=== PATIENT | female | born 1995 | race Hispanic/Latino ===

== ENCOUNTER 2021-04-29 18:55 | Emergency (ER) | payer OTHER, SELFPAY ==
--- OUTSIDE RECORDS SUMMARY | 2021-04-29 19:01 | XMS REPORT | Continuity of Care Document ---
:1995 Author Organization [facility] t Address [address] [place] [address] Care Team Providers Name Role Phone Maru Tong Attending Clinician [phone] Lab, Fam Pob I Attending Clinician Unavailable Gisel Holly Attending Clinician Problems This patient has no known problems. Allergies, Adverse Reactions, Alerts This patient has no known allergies or adverse reactions. Medications This patient has no known medications. Procedures This patient has no known procedures. Encounters Start End Encounter Admission Attending Care Care Encounter Source Date/Time Date/Time Type Type Clinicians Facility Department ID 2020-12-23 2020-12-23 Routine Paxton [facility] [id number] 15:06:51 15:39:49 Maru Ross TOOL BUILDER 350..13.10 Visit [facility] [id number] MATERNAL [id number] & CHILD [address] [place] [address] 2020-12-11 2020-12-11 Laboratory Lab, Adc [facility] [id number] 11:44:25 12:04:25 Only Fam Pob I Health [id number] [place] [id number] Professio [id number] nal [address] 2020-11-30 2020-11-30 Telephone Tobias [facility] [id number] 00:00:00 00:00:00 Elina Batres TOOL BUILDER [id number] [facility] [id number] MATERNAL [id number] & CHILD [address] [place] [address] - CHADDS FORD Results This patient has no known results.
--- NOTE | 2021-04-29 20:27 | RAD REPORT ---
EXAM DESCRIPTION: CT - Head Brain Wo Cont - 04/29/2021 8:21 pm CLINICAL HISTORY: HEADACHE COMPARISON: No comparisons TECHNIQUE: Axial 5 mm thick images of the head were obtained without IV contrast. All CT scans are performed using dose optimization technique as appropriate and may include automated exposure control or mA/KV adjustment according to patient size. FINDINGS: No intracranial hemorrhage, mass, edema or shift of mid-line structures. No acute infarcti on changes seen. No abnormal extra-axial fluid collections. Ventricles are normal. Mastoid air cells and visualized portions of the paranasal sinuses are clear. No acute bony findings. IMPRESSION: Negative non-contrast CT head examination.
[2021-04-29] MEDS ORDERED: dexAMETHasone 10 MG/ML VIAL ONE (20:57)
[2021-04-29] MEDS ORDERED: ONDANSETRON 4 MG/2 ML VIAL ONE (20:58)
[2021-04-29] MEDS ORDERED: MEPERIDINE HCL 25 MG/ML SYR ONE (20:58)
[2021-04-29] MEDS ORDERED: NA CHLORIDE 0.9% 1,000 ML ONE (20:58)
[2021-04-29 21:09] LABS: Urine Blood Negative (Negative); Urine Glucose Negative (Negative); Urine Protein Negative (Negative); Urine Specific Gravity 1.025 (1.005-1.030)
[2021-04-29 21:11] LABS: Urine Specific Gravity/Preg 1.025 (1.005-1.030)
[2021-04-29 21:14] LABS: Absolute Lymphocytes (CBC) 1.9 K/uL (0.7-4.9); Basophils % 0.2 % (0-1.3); Hematocrit 40.1 % (36.0-45.0); Lymphocytes % 14.6 % (15.3-44.8); MPV 8.2 fL (7.6-11.3); RBC Red Blood Cell Count 5.13 M/uL (3.86-4.86)
[2021-04-29 21:25] LABS: Urine Bacteria 20-50 /HPF (<20); Urine Mucus 2+ /HPF (NONE SEEN); Urine RBC <5 /HPF (NONE SEEN)
[2021-04-29 21:28] LABS: BUN Blood Urea Nitrogen 9 mg/dL (7-18); Bicarbonate 26 mmol/L (21-32); Glucose Level 93 mg/dL (74-106); Potassium 3.7 mmol/L (3.5-5.1); Sodium Level 140 mmol/L (136-145)
--- NOTE | 2021-04-29 21:34 | EDPHYS ---
Physician Documentation [facility] Name: Carlyn Vanegas Age: 25 yrs Sex: Female : 1995 Arrival Date: 04/29/2021 Time: 18:58 Bed 8 Private MD: ED Physician Eduard Osborne HPI: 04/29 20:14 This 25 yrs old Female presents to ER via Ambulatory with complaints of rn Headache. 20:14 The patient complains of pain to the top of head and forehead. The patient describes rn the headache as aching. Onset: The symptoms/episode began/occurred today. Associated signs and symptoms: Pertinent positives: nausea, vomiting, Pertinent negatives: altered mental status, fever, neck stiffness, paresthesias, rash, vision loss, weakness. Severity of symptoms: At its worst the pain was moderate, in the emergency department the pain is unchanged. Headache History: The patient has had previous headaches and this one is similar to previous episodes. The symptoms are alleviated by nothing. the symptoms are aggravated by nothing. The patient has experienced similar episodes in the past. The patient has not recently seen a physician. Reports headache that began earlier today, no trauma, has happened numerous times before since teenage years, no diagnosis yet, no fever/neck stiffness. Reports spots in both eyes. Usually goes away with OTC meds and coke, didn't today. No focal neurological complaint. NO vision loss. Does not feel sick. Reports vomiting and unable to keep pills down so came in.. 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 - Social history:: Smoking status: Patient denies any tobacco usage or history of. - Family history:: not pertinent. - Hospitalizations: : No recent hospitalization is reported. ROS: 20:14 Constitutional: Negative for fever and weight loss Eyes: Negative for injury, pain, rn redness, and discharge, ENT: Negative for injury, pain, and discharge, Neck: Negative for injury, pain, and swelling, Cardiovascular: Negative for chest pain, palpitations, and edema, Respiratory: Negative for shortness of breath, cough, wheezing, and pleuritic chest pain, Abdomen/GI: Negative for abdominal pain, diarrhea, and constipation, Back: Negative for injury and pain, : Negative for injury, bleeding, discharge, and swelling, MS/Extremity: Negative for injury and deformity, Skin: Negative for injury, rash, and discoloration, Neuro: Negative for weakness, numbness, tingling, and seizure. Exam: 20:14 Constitutional: This is a well developed, well nourished patient who is awake, alert, rn and in no acute distress. Ambulatory to room without difficulty, normal gait. Head/Face: Normocephalic, atraumatic. Eyes: Pupils equal round and reactive to light, extra-ocular motions intact. Lids and lashes normal. Conjunctiva and sclera are non-icteric and not injected. Cornea within normal limits. Periorbital areas with no swelling, redness, or edema. ENT: No stridor Neck: Supple, full range of motion without nuchal rigidity, or vertebral point tenderness. No Meningismus. Cardiovascular: Regular rate and rhythm. No pulse deficits. Respiratory: No increased work of breathing, no retractions or nasal flaring. Skin: Warm, dry with normal turgor. Normal color with no rashes, no lesions, and no evidence of cellulitis. MS/ Extremity: Pulses equal, no cyanosis. Neurovascular intact. Full, normal range of motion. Equal circumference. Neuro: Awake and alert, GCS 15, oriented to person, place, time, and situation. Cranial nerves II-XII grossly intact. Motor strength 5/5 in all extremities. Sensory grossly intact. Cerebellar exam normal. Normal gait. 21:24 ECG was reviewed by the Attending Physician. rn Vital Signs: 19:09 BP 139 / 96; Pulse 87; Resp 18; Temp 97.3; Pulse Ox 100% on R/A; Weight 62.6 kg; Height ph 5 ft. 3 in. (160.02 cm); 21:50 BP 123 / 86; Pulse 80; Resp 18; Pulse Ox 99% on R/A; ea 19:09 Body Mass Index 24.45 (62.60 kg, 160.02 cm) ph Sabrina Coma Score: 20:14 Eye Response: spontaneous(4). Verbal Response: oriented(5). Motor Response: obeys rn commands(6). Total: 15. MDM: 20:02 Patient medically screened. rn 20:14 Differential diagnosis: cluster headache, hypertensive headache, intracerebral rn hemorrhage, migraine, neoplasm, sinusitis, tension headache, trigeminal neuralgia, vasomotor headache. 21:18 ED course: COVID vaccinated. rn 21:31 Data reviewed: vital signs, nurses notes, lab test result(s), EKG, radiologic studies, rn CT scan, and as a result, I will discharge patient. Counseling: I had a detailed discussion with the patient and/or guardian regarding: the historical points, exam findings, and any diagnostic results supporting the discharge/admit diagnosis, lab results, radiology results, the need for outpatient follow up, to return to the emergency department if symptoms worsen or persist or if there are any questions or concerns that arise at home. Response to treatment: the patient's symptoms have markedly improved after treatment, the patient's condition has returned to base line, the patient is now symptom free, Pain completely resolved, and as a result, I will discharge patient. Special discussion: I discussed with the patient/guardian in detail that at this point there is no indication for admission to the hospital. It is understood, however, that if the symptoms persist or worsen the patient needs to return immediately for re-evaluation. 04/29 20:14 Order name: CBC with Diff 04/29 20:14 Order name: Basic Metabolic Panel 04/29 20:14 Order name: Urine Microscopic Only 04/29 20:14 Order name: Banks Screen Profile; Complete Time: 21:29 04/29 20:14 Order name: CBC with Automated Diff; Complete Time: 21:18 [facility] 04/29 20:14 Order name: Basic Metabolic Panel; Complete Time: 21:29 [facility] 04/29 20:14 Order name: CT Head Brain wo Cont; Complete Time: 20:30 04/29 20:15 Order name: Urine Microscopic Only; Complete Time: 21:29 [facility] 04/29 21:09 Order name: Urine Dipstick-Ancillary; Complete Time: 21:18 [facility] 04/29 21:10 Order name: Urine --Ancillary (enter results); Complete Time: 21:18 mw2 04/29 21:27 Order name: Urine Culture [facility] 04/29 20:14 Order name: IV Start; Complete Time: 21:13 04/29 20:14 Order name: Urine Dipstick-Ancillary (obtain specimen); Complete Time: 21:13 rn 04/29 20:14 Order name: Urine Test (obtain specimen); Complete Time: 21:13 rn 04/29 20:14 Order name: EKG; Complete Time: 20:15 rn 04/29 20:14 Order name: EKG - Nurse/Tech; Complete Time: 21:40 rn EC:24 Rate is 64 beats/min. Rhythm is regular. QRS [place] is Normal. MI interval is normal. QRS rn interval is normal. QT interval is normal. No Q waves. T waves are Inverted in leads V1, V2. No ST changes noted. Clinical impression: NSR w/ Non-specific ST/T Changes. Interpreted by me. Administered Medications: 21:05 Drug: Zofran (Ondansetron) 4 mg Route: IVP; Site: right antecubital; ea 21:49 Follow up: Response: No adverse reaction ea 21:12 Drug: Demerol (meperidine) 25 mg Route: IVP; Site: right antecubital; ea 21:49 Follow up: Response: No adverse reaction ea 21:12 Drug: Decadron - Dexamethasone 10 mg Route: IVP; Site: right antecubital; ea 21:49 Follow up: Response: No adverse reaction ea 21:14 Drug: NS 0.9% 1000 ml Route: IV; Rate: 1000 ml; Site: right antecubital; ea 21:49 Follow up: Response: No adverse reaction; IV Status: Completed infusion; IV Intake: ea 1000ml 21:49 Drug: Cipro (ciprofloxacin) 500 mg Route: PO; ea 21:49 Follow up: Response: Medication administered at discharge. ea Disposition Summary: 04/29/21 21:33 Discharge Ordered Location: Home rn Problem: an ongoing problem rn Symptoms: have improved rn Condition: Stable rn Diagnosis - Migraine without aura, not intractable rn - UTI/ Urinary tract infection, site not specified rn Followup: rn - With: Kye Lizarraga MD - When: As needed - Reason: Recheck today's complaints, Re-evaluation by your physician Discharge Instructions: - Discharge Summary Sheet rn - Migraine Headache rn - Urinary Tract Infection, Adult rn Forms: - Medication Reconciliation Form rn - Thank You Letter rn - Antibiotic foundry patternmaker - Prescription Opioid Use rn Prescriptions: - Cipro 500 mg Oral Tablet - take 1 tablet by ORAL route every 12 hours for 10 days; 20 tablet; Refills: 0, rn Product Selection Permitted - ondansetron 4 mg Oral tablet,disintegrating - take 1 tablet by ORAL route every 8 hours As needed; 15 tablet; Refills: 0, rn Product Selection Permitted Signatures: Dispatcher [employer] Eduard Calvo MD MD rn Hall, Patricia, RN RN ph Antunez, Elena, RN RN ea
--- NOTE | 2021-04-29 21:34 | ER ---
Nurse's Notes [facility] Name: Carlyn Vanegas Age: 25 yrs Sex: Female : 1995 Arrival Date: 04/29/2021 Time: 18:58 Bed 8 Private MD: Diagnosis: Migraine without aura, not intractable;UTI/ Urinary tract infection, site not specified Presentation: 04/29 19:09 Chief complaint: Patient states: Headache, dizziness, N/V x 1 day, denies abdominal ph pain or diarrhea. Coronavirus screen: Client denies travel out of the [place] in the last 14 days. Ebola Screen: No symptoms or risks identified at this time. Initial Sepsis Screen: Does the patient meet any 2 criteria? No. Patient's initial sepsis screen is negative. Does the patient have a suspected source of infection? No. Patient's initial sepsis screen is negative. Risk Assessment: Do you want to hurt yourself or someone else? Patient reports no desire to harm self or others. Onset of symptoms was April 29, 2021. 19:09 Method Of Arrival: Ambulatory 19:09 Acuity: MADI 3 ph BINDER CASER: 19:10 LMP 04/13/2021 ph Historical: - Allergies: 19:10 No Known Allergies; ph - PMHx: 19:10 None; ph - Immunization history:: Client reports receiving the 2nd dose of the Covid vaccine. - Social history:: Smoking status: Patient denies any tobacco usage or history of. - Family history:: not pertinent. - Hospitalizations: : No recent hospitalization is reported. Screenin:11 Abuse screen: Denies threats or abuse. Nutritional screening: No deficits noted. ea Tuberculosis screening: No symptoms or risk factors identified. Fall Risk IV access (20 points). Assessment: 21:12 General: Appears in no apparent distress. Behavior is calm, cooperative, appropriate ea for age. Neuro: Level of Consciousness is awake, alert, obeys commands, Oriented to person, place, time. Respiratory: Airway is patent Respiratory effort is even, unlabored, Respiratory pattern is regular, symmetrical. GI: Abdomen is non-distended. Derm: Skin is pink, warm \T\ dry. 21:54 Reassessment: Patient and/or family updated on plan of care and expected duration. Pain ea level reassessed. Patient is alert, oriented x 3, equal unlabored respirations, skin warm/dry/pink. Discharge instruction given to patient verbalized the understanding of instruction Pt left ED ambulatory tolerating well. Pt accompanied by significant other. Vital Signs: 19:09 BP 139 / 96; Pulse 87; Resp 18; Temp 97.3; Pulse Ox 100% on R/A; Weight 62.6 kg; Height ph 5 ft. 3 in. (160.02 cm); 21:50 BP 123 / 86; Pulse 80; Resp 18; Pulse Ox 99% on R/A; ea 19:09 Body Mass Index 24.45 (62.60 kg, 160.02 cm) ph [place] Coma Score: 20:14 Eye Response: spontaneous(4). Verbal Response: oriented(5). Motor Response: obeys rn commands(6). Total: 15. ED Course: 18:58 Patient arrived in ED. as 19:10 Triage completed. ph 19:10 Arm band placed on Patient placed in waiting room, Patient notified of wait time. ph 20:02 Eduard Osborne MD is Attending Physician. rn 20:24 CT Head Brain wo Cont In Process Unspecified. EDMS 20:28 Alicia Pugh, RN is Primary Nurse. ea 21:11 Patient has correct armband on for positive identification. Bed in low position. Call ea light in reach. Pulse ox on. NIBP on. 21:11 Inserted saline lock: 20 gauge in right antecubital area, using aseptic technique. ea Blood collected. 21:33 Kye Lizarraga MD is Referral Physician. rn 21:49 No provider procedures requiring assistance completed. IV discontinued, intact, ea bleeding controlled, No redness/swelling at site. Pressure dressing applied. Administered Medications: 21:05 Drug: Zofran (Ondansetron) 4 mg Route: IVP; Site: right antecubital; ea 21:49 Follow up: Response: No adverse reaction ea 21:12 Drug: Demerol (meperidine) 25 mg Route: IVP; Site: right antecubital; ea 21:49 Follow up: Response: No adverse reaction ea 21:12 Drug: Decadron - Dexamethasone 10 mg Route: IVP; Site: right antecubital; ea 21:49 Follow up: Response: No adverse reaction ea 21:14 Drug: NS 0.9% 1000 ml Route: IV; Rate: 1000 ml; Site: right antecubital; ea 21:49 Follow up: Response: No adverse reaction; IV Status: Completed infusion; IV Intake: ea 1000ml 21:49 Drug: Cipro (ciprofloxacin) 500 mg Route: PO; ea 21:49 Follow up: Response: Medication administered at discharge. ea Intake: 21:49 IV: 1000ml; Total: 1000ml. ea Outcome: 21:33 Discharge ordered by . rn 21:50 Discharged to home ambulatory, with family. ea 21:50 Condition: stable 21:50 Discharge instructions given to patient, Instructed on discharge instructions, follow up and referral plans. no driving heavy equipment, Demonstrated understanding of instructions, follow-up care, medications, Prescriptions given X 2. 21:55 Patient left the ED. ea Signatures: Dispatcher [employer] Leesa Dickson Roman, MD MD rn Hall, Patricia, RN RN ph Antunez, Elena, RN RN ea
[2021-04-29] MEDS ORDERED: CIPROFLOXACIN HCL 500 MG TAB ONE (22:05)
[2021-04-29 22:26] VITALS: TEMP 97.3
[2021-04-29 22:28] VITALS: BP 123/86; O2SAT 99
--- NOTE | 2021-04-30 06:18 | EKG ---
Test Date: 2021-04-29 Test Time: 21:23:08 Script Editor: SULY MEASUREMENT RESULTS: Intervals: Rate: 64 MD: 120 QRSD: 88 QT: 430 QTc: 443 [place]: P: 36 MD: 120 QRS: 76 T: 41 INTERPRETIVE STATEMENTS: Normal sinus rhythm Nonspecific T wave abnormality Abnormal ECG No previous ECG available for comparison Electronically Signed On 04-30-21 06:17:39 CDT by Erick Henriquez
== END 2021-04-29 21:55 | disposition home or self-care (01) ==
LOC: ER 18:55
DX: G43.009 Migraine without aura, not intractable, without status migrainosus (principal); N39.0 Urinary tract infection, site not specified
CPT/HCPCS: 36415; 70450; 80048; 81003; 81015; 81025; 85025; 86308; 87077; 87086; 87088; 87186; 93005; 96361; 96374; 96375; 99284; J1100; J2175; J2405; J7030

== ENCOUNTER 2023-07-17 11:36 | Emergency (ER) | payer SELFPAY ==
--- OUTSIDE RECORDS SUMMARY | 2023-07-17 11:39 | XMS REPORT | Continuity of Care Document ---
:1995 Author Organization [facility] t Address [address] [address] [place] [address] Care Team Providers Name Role Phone MARU SERRANO Attending Clinician Unavailable Paxton Maru KOHLI Attending Clinician [phone] FREDERIC SANTANA Attending Clinician Unavailable Lab, Adc Fam Pob I Attending Clinician Unavailable Elina Holly Attending Clinician ELINA COLLADO Attending Clinician Unavailable MACK MOODY Attending Clinician Unavailable MACK MOODY Admitting Clinician Unavailable Payers Payer Name Policy Type Policy Number Effective Date Expiration Date Nakita sprague [place] DU[place] [id number] 2020 HEALTH 00:00:00 MEDICAID PENDING PENDING 2020 00:00:00 Problems This patient has no known problems. Allergies, Adverse Reactions, Alerts Allergy Allergy Status Severity Reaction(s) Onset Inactive Treating Comm ents Source Name Type Date Date Clinician NO KNOWN Drug Active Univers ALLERGIE Class ity of S [facility] Medications This patient has no known medications. Procedures This patient has no known procedures. Encounters Start End Encounter Admission Attending Care Care Encounter Source Date/Time Date/Time Type Type Clinicians Facility Department ID 2021-01-13 2021-01-13 Outpatient R PAXTON [facility] [id number] Univers 10:30:00 10:30:00 MARU seaman o juvencio [facility] 2020-12-23 2020-12-23 Outpatient R PAXTON, [facility] [id number] Univers 16:00:00 16:00:00 MARU seaman o juvencio [facility] 2020-12-23 2020-12-23 Routine Paxton, [facility] [id number] 15:06:51 15:39:49 Maru C MIXER ATTENDANT [id number] Visit REGIONAL [id number] MATERNAL [id number] & CHILD [address] [facility] 2020-12-17 2020-12-17 Outpatient R PAXTON, [facility] [id number] Univers 13:00:00 13:00:00 MARU martin [facility] 2020-12-14 2020-12-14 Outpatient R PAXTON, [facility] [id number] Univers 14:30:00 14:30:00 MARU martin [facility] 2020-12-11 2020-12-11 Outpatient R MAX [facility] [id number] Univers 13:00:00 13:00:00 FREDERIC urszula [facility] 2020-12-11 2020-12-11 Laboratory Lab, [facility] [id number] 11:44:25 12:04:25 Only Fam Pob I Health [id number] [place] [id number] Professio [id number] nal [address] 2020-11-30 2020-11-30 [facility] [id number] 00:00:00 00:00:00 Elina Batres MIXER ATTENDANT [id number] REGIONAL [id number] MATERNAL [id number] & CHILD [address] [facility] 2020-11-27 2020-11-27 Outpatient Gisel COLLADO [facility] [id number] Univers 13:30:00 13:30:00 ROSKRISTYNNDA ity o [facility] 2020-11-20 2020-11-20 Outpatient P FRANSISCO [facility] ZAIRA [id number] Univers 06:01:00 06:01:00 MACK seaman [facility] 2020-11-17 2020-11-17 Outpatient R LOU [facility] [id number] Univers 11:00:00 11:00:00 OLIVERNDA ity o f [facility] 2020-11-11 2020-11-11 Outpatient R LOU [facility] [id number] Univers 13:45:00 13:45:00 ROSKRISTYNNDA ity o f [facility] 2020-11-10 2020-11-10 Outpatient R LOU [facility] [id number] Univers 13:45:00 13:45:00 ROSKRISTYNNDA ity o f [facility] 2020-11-04 2020-11-04 Outpatient R LOU [facility] [id number] Univers 12:45:00 12:45:00 OLIVERNDA nedy o f [facility] 2020-10-20 2020-10-20 Outpatient R LOU [facility] [id number] Univers 11:00:00 11:00:00 OLIVERNDA ity o f [facility] 2020-10-05 2020-10-05 Outpatient R LOU [facility] [id number] Univers 11:00:00 11:00:00 OLIVERNDA ity o f [facility] 2020-10-01 2020-10-01 Outpatient P [facility] [id number] Univers 08:00:00 08:00:00 itsaida [facility] 2020-09-21 2020-09-21 Outpatient R LOU [facility] [id number] Univers 08:00:00 08:00:00 ROSKRISTYNNDA ity o f [facility] 2020-09-07 2020-09-07 Outpatient R LOU [facility] [id number] Univers 13:15:00 13:15:00 ROSKRISTYNNDA ity o f [facility] 2020-08-24 2020-08-24 Outpatient R LOU [facility] [id number] Univers 12:45:00 12:45:00 ROSKRISTYNNDA ity o f [facility] 2020-08-21 2020-08-21 Outpatient R LOU [facility] [id number] Univers 09:30:00 09:30:00 OLIVERNDA ity o f [facility] 2020-07-24 2020-07-24 Outpatient R LOU [facility] [id number] Univers 08:45:00 08:45:00 OLIVERNDA ity o f [facility] 2020-07-20 2020-07-20 Outpatient R LOU [facility] [id number] Univers 10:45:00 10:45:00 OLIVERNDA ity o f [facility] 2020-07-14 2020-07-14 Outpatient R [facility] [id number] Univers 13:00:00 13:00:00 ity [facility] 2020-06-22 2020-06-22 Outpatient R LOU [facility] [id number] Univers 13:45:00 13:45:00 OLIVERNDA nedy o f [facility] 2020-06-12 2020-06-12 Outpatient R LOU [facility] [id number] Univers 10:15:00 10:15:00 OLIVERNDA nedy o f [facility] 2020-06-12 2020-06-12 Outpatient R [facility] [id number] Univers 08:20:[facility] 2020-06-03 Outpatient R LOU [facility] [id number] Univers 12:45:00 12:45:00 OLIVERNDA ity o f [facility] 2020-05-19 2020-05-19 Outpatient P [facility] [id number] Univers 14:00:00 14:00:00 y [facility] 2020-05-06 2020-05-06 Outpatient R LOU [facility] [id number] Univers 12:45:00 12:45:00 ROSKRISTYNNDA ity o f [facility] 2020-04-08 2020-04-08 Outpatient R LOU [facility] [id number] Univers 12:45:00 12:45:00 ROSKRISTYNNDA ity o f [facility] 2019-07-03 2019-07-03 Outpatient R LOU [facility] [id number] Univers 08:00:00 09:28:39 ELINA henning [facility] Results This patient has no known results.
--- NOTE | 2023-07-17 13:21 | ER ---
Nurse's Notes [facility] Name: Carlyn Vanegas Age: 27 yrs Sex: Female : 1995 Arrival Date: 07/17/2023 Time: 11:36 Bed 10 Private MD: Diagnosis: Acute upper respiratory infection, unspecified Presentation: 07/17 11:50 Chief complaint: Patient states: sore throat, ear pain bilaterally and runny nose since nc1 Monday. Coronavirus screen: Vaccine status: Patient reports receiving the 2nd dose of the covid vaccine. congestion, cough unrelated to allergies, runny nose, sore throat. Ebola Screen: No symptoms or risks identified at this time. Initial Sepsis Screen: Does the patient meet any 2 criteria? No. Patient's initial sepsis screen is negative. Does the patient have a suspected source of infection? No. Patient's initial sepsis screen is negative. Risk Assessment: Do you want to hurt yourself or someone else? Patient reports no desire to harm self or others. Onset of symptoms was July 15, 2023. 11:50 [place] [facility] [place]: [place] [facility] [place] Assessment: 11:51 General: Appears uncomfortable, well groomed, well developed, well nourished, Behavior nc1 is calm, cooperative, appropriate for age. Pain: Complains of pain in right ear and left ear Pain does not radiate. Pain currently is 6 out of 10 on a pain scale. Quality of pain is described as tender, Pain began 2-3 days ago. Is continuous. 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 - Social history:: Smoking status: Reported history of juuling and/or vaping. Screenin:00 [facility] ED Fall Risk Assessment (Adult) History of falling in the last 3 months, db including since admission No falls in past 3 months (0 pts) Confusion or Disorientation No (0 pts) Intoxicated or Sedated No (0 pts) Impaired Gait No (0 pts) Mobility Assist Device Used No (0 pt) Altered Elimination No (0 pt) Score/Fall Risk Level 0 - 2 = Low Risk Oriented to surroundings, Maintained a safe environment. Abuse screen: Denies threats or abuse. Denies injuries from another. Nutritional screening: No deficits noted. Tuberculosis screening: No symptoms or risk factors identified. Assessment: 12:00 Reassessment: Patient appears in no apparent distress at this time. Patient and/or db family updated on plan of care and expected duration. Pain level reassessed. Patient is alert, oriented x 3, equal unlabored respirations, skin warm/dry/pink. General: Appears in no apparent distress. comfortable, Behavior is calm, cooperative. Respiratory: Airway is patent Respiratory effort is even, unlabored, Respiratory pattern is regular, symmetrical. EENT: Reports nasal congestion. 13:37 Reassessment: Patient appears in no apparent distress at this time. Patient and/or db family updated on plan of care and expected duration. Pain level reassessed. Patient is alert, oriented x 3, equal unlabored respirations, skin warm/dry/pink. Neuro: Level of Consciousness is awake, alert, obeys commands, Oriented to person, place, time, situation. Vital Signs: 11:50 BP 120 / 87; Pulse 76; Resp 16; Pulse Ox 100% on R/A; Weight 57.61 kg; Height 5 ft. 3 me1 in. ; 13:37 BP 120 / 86; Pulse 78; Resp 16; Pulse Ox 100% ; db 11:50 Body Mass Index 22.50 (57.61 kg, 160.02 cm) me1 ED Course: 11:38 Patient arrived in ED. rg4 11:41 Micky Slade DO is Attending Physician. ms3 11:51 Triage completed. me1 11:51 Arm band placed on Patient placed in waiting room. me1 13:09 Sharon Schmidt, RN is Primary Nurse. db 13:21 Dakota Carrera DO is Referral Physician. ms3 13:37 Patient has correct armband on for positive identification. Bed in low position. db Provided Education on: DISCHARGE. 13:38 No provider procedures requiring assistance completed. Patient did not have IV access db during this emergency room visit. Administered Medications: No medications were administered Medication: 12:00 VIS not applicable for this client. db Outcome: 13:21 Discharge ordered by . ms3 13:38 Discharged to home ambulatory, db 13:38 Condition: stable 13:38 Discharge instructions given to patient, Instructed on discharge instructions, follow up and referral plans. 13:39 Patient left the ED. db Signatures: Kierra Woods rg4 Micky Slade DO DO ms3 Sharon Schmidt, RN RN db Edna [place], LAURA RN me1 Corrections: (The following items were deleted from the chart) 11 11:51 PMHx: Unable to Obtain; me1 me1 52 11:51 PSHx: None; me1 me1
--- NOTE | 2023-07-17 13:21 | EDPHYS ---
Physician Documentation [facility] Name: Carlyn Vanegas Age: 27 yrs Sex: Female : 1995 Arrival Date: 07/17/2023 Time: 11:36 Bed 10 Private MD: ED Physician Micky Slade HPI: 07/17 11:51 This 27 yrs old Female presents to ER via Unassigned with complaints of Cough, ms3 Ear Pain, Sore Throat, Runny Nose. 11:51 27-year-old female with no past medical history presents for sore throat, ear pain, ms3 congestion that began Monday. Patient notes she also had a fever on Monday. Patient states she needs to be COVID tested prior to her job allowing her to return. Patient denies nausea, vomiting, pain at this time. 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 - Social history:: Smoking status: Reported history of juuling and/or vaping. ROS: 11:51 Constitutional: Negative for fever, and chills. Neck: Negative for injury, pain, and ms3 swelling, Cardiovascular: Negative for chest pain, and palpitations. Respiratory: Negative for shortness of breath, cough, wheezing, and pleuritic chest pain, Abdomen/GI: Negative for abdominal pain, nausea, vomiting, diarrhea, and constipation, MS/Extremity: Negative for injury and deformity, Skin: Negative for injury, rash, and discoloration, Neuro: Negative for headache, weakness, numbness, tingling. 11:51 ENT: Positive for ear pain, nasal discharge, sore throat, Exam: 11:51 Constitutional: This is a well developed, well nourished patient who is awake, alert, ms3 and in no acute distress. Head/Face: Normocephalic, atraumatic. Eyes: Pupils equal round and reactive to light, extra-ocular motions intact. Lids and lashes normal. Conjunctiva and sclera are non-icteric and not injected. Periorbital areas with no swelling, redness, or edema. 11:51 ENT: Nose: nasal drainage, that is minimal, and is seen coming from both nares, that is clear, Mouth: Posterior pharynx: PND, Vital Signs: 11:50 BP 120 / 87; Pulse 76; Resp 16; Pulse Ox 100% on R/A; Weight 57.61 kg; Height 5 ft. 3 me1 in. ; 13:37 BP 120 / 86; Pulse 78; Resp 16; Pulse Ox 100% ; db 11:50 Body Mass Index 22.50 (57.61 kg, 160.02 cm) me1 MDM: 11:50 Patient medically screened. ms3 11:51 Differential Diagnosis: Influenza Upper Respiratory Infection Other COVID. ms3 13:22 Data reviewed: vital signs, nurses notes, lab test result(s), and as a result, I will ms3 discharge patient. Care significantly affected by the following Social Determinants of Health: Poor access to healthcare and/or lack of insurance. Counseling: I had a detailed discussion with the patient and/or guardian regarding the historical points, exam findings, and any diagnostic results supporting the discharge/admit diagnosis, lab results, the need for outpatient follow up, to return to the emergency department if symptoms worsen or persist or if there are any questions or concerns that arise at home. Special discussion: I discussed with the patient/guardian in detail that at this point there is no indication for admission to the hospital. It is understood, however, that if the symptoms persist or worsen the patient needs to return immediately for re-evaluation. ED course: Discussed negative flu and COVID with patient. Patient to follow-up with primary care physician in 2 to 3 days. Patient understands and agrees with plan. All questions were answered. Return precautions discussed include worsening symptoms, or any other concerns. On reevaluation patient is alert and orient x4, no apparent distress, nontoxic-appearing, ambulatory in emergency primary, speaking full sentences. 07/17 11:51 Order name: Flu; Complete Time: 13:09 ms3 07/17 11:51 Order name: COVID-19 SARS RT PCR; Complete Time: 13: ms3 Administered Medications: No medications were administered Disposition Summary: 07/17/23 13:21 Discharge Ordered Notes: Location: Home ms3 Condition: Stable ms3 Diagnosis - Acute upper respiratory infection, unspecified ms3 Followup: ms3 - With: Dakota Carrera DO - When: 2 - 3 days - Reason: Recheck today's complaints Discharge Instructions: - Discharge Summary Sheet ms3 - Upper Respiratory Infection, Adult ms3 Forms: - Work release form ms3 - Medication Reconciliation Form ms3 - Thank You Letter ms3 - Antibiotic Education ms3 - Prescription Opioid Use ms3 - Patient Portal Instructions ms3 - Leadership Thank You Letter ms3 Signatures: Dispatcher [employer] Micky Lisa DO DO ms3 Edna [place] RN RN me1 Corrections: (The following items were deleted from the chart) 11: 11:51 PMHx: Unable to Obtain; me1 me1 11:52 11:51 PSHx: None; me1 me1
[2023-07-17 13:56] VITALS: O2SAT 100
[2023-07-17 13:57] VITALS: BP 120/86
== END 2023-07-17 13:39 | disposition home or self-care (01) ==
LOC: ER 11:36
DX: J06.9 Acute upper respiratory infection, unspecified (principal); Z20.822 Contact with and (suspected) exposure to COVID-19
CPT/HCPCS: 87635; 87804; 99282